=== PATIENT | male | born 1955 | race Caucasian/White ===

== ENCOUNTER 2021-06-01 07:41 | Day surgery (SDC) | payer BC, SELFPAY ==
[~2021-06-01] VITALS: Ht 175.3 cm; Wt 75.7 kg
[2021-06-01] MEDS ORDERED: MIDAZOLAM HCL 5 MG/5 ML VIAL ONE (08:31)
[2021-06-01] MEDS ORDERED: LIDOCAINE 2%, 20 ML MDV ONE (08:32)
[2021-06-01] MEDS ORDERED: BUPIVACAINE /PF 0.25% 30 ML VIAL INJ ONE (08:32)
[2021-06-01] MEDS ORDERED: NS 500 ML IV.SOLN IV ONE (08:32)
[2021-06-01] MEDS ORDERED: IOHEXOL 300 mgI/mL, 50 mL INFUS..BTL IV ONE (08:32)
[2021-06-01] MEDS ORDERED: methylPREDNISolone ACETATE 40 MG/ML ONE (08:32)
[2021-06-01] MEDS ORDERED: DIPHENHYDRAMINE INJ 50 MG/ML VIAL ONE (08:32)
[2021-06-01 14:44] VITALS: BP_SYST 125
== END 2021-06-01 11:25 | disposition home or self-care (01) ==
LOC: SDS 07:41 → SMU 07:44 → SDS 11:25
PROVIDERS: ATTEND Internal Medicine
DX: M51.16 Intervertebral disc disorders with radiculopathy, lumbar region (principal); M79.10 Myalgia, unspecified site; Z79.899 Other long term (current) drug therapy; Z20.822 Contact with and (suspected) exposure to COVID-19
CPT/HCPCS: 36415; 62323; 82962; 87426; J1030; J1200; J2001; J2250; J3490; J7040; Q9967; U0003; 76000

== ENCOUNTER 2021-06-29 08:18 | Day surgery (SDC) | payer BC, SELFPAY ==
[~2021-06-29] VITALS: Ht 175.3 cm; Wt 78.0 kg
[2021-06-29] MEDS ORDERED: methylPREDNISolone ACETATE 40 MG/ML IM ONE (08:19)
[2021-06-29] MEDS ORDERED: LIDOCAINE 2%, 20 ML MDV INJ ONE (08:19)
[2021-06-29] MEDS ORDERED: IOHEXOL 300 mgI/mL, 50 mL INFUS..BTL IV ONE (08:19)
[2021-06-29] MEDS ORDERED: BUPIVACAINE /PF 0.25% 30 ML VIAL INJ ONE (08:19)
[2021-06-29] MEDS ORDERED: DIPHENHYDRAMINE INJ 50 MG/ML VIAL ONE (08:46)
[2021-06-29] MEDS ORDERED: MIDAZOLAM HCL 5 MG/5 ML VIAL ONE (08:46)
[2021-06-29 12:22] VITALS: BP_SYST 129
== END 2021-06-29 11:15 | disposition home or self-care (01) ==
LOC: SDS 08:18 → SMU 08:18 → SDS 11:15
PROVIDERS: ATTEND Internal Medicine
DX: M51.16 Intervertebral disc disorders with radiculopathy, lumbar region (principal); M51.9 Unspecified thoracic, thoracolumbar and lumbosacral intervertebral disc disorder; M79.10 Myalgia, unspecified site; Z79.899 Other long term (current) drug therapy; Z20.822 Contact with and (suspected) exposure to COVID-19
CPT/HCPCS: 36415; 62323; 82962; 87426; J1030; J1200; J2001; J2250; J3490; Q9967; 76000